=== PATIENT | male | born 1945 | race Caucasian/White ===

== ENCOUNTER 2020-05-28 01:36 | Inpatient (IN) | payer MEDICARE, OTHER ==
[2020-05-28] MEDS ORDERED: Enoxaparin Sodium 100 MG/ML SYRINGE ONE (02:27)
[2020-05-28] MEDS ORDERED: Senokot S 8.6-50 MG TAB PO PRN (03:14)
[2020-05-28] MEDS ORDERED: Acetaminophen 325 MG TAB PO PRN (03:14)
[2020-05-28 03:25] LABS: Troponin I 0.155 ng/mL (< 0.028)
--- NOTE | 2020-05-28 03:58 | PDOC.HHP ---
Hospitalist HPI - History of Present Illness Neck pain; weakness History of Present Illness: 74M presents to the ED in [place] as a transfer from the [place] ED where he was evaluated for 2 episodes of neck pain and weakness after having a BM. He denies having chest pain. He reports feeling very tried, sweaty and had a severe pain in his posterior neck. This happened 2 days in a row while having a BM both times. He was initially worked up for "stroke like" symptoms but had a negative NIH and work-up. He did have a high indeterminate troponin and was sent here to [place] for a cardiac workup. 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 He is also hard of hearing. He denies having any cardiac history, reports 2 stress tests, one that showed some posterior scaring, and subsequent wall motion was normal. He has not seen a vice president of news in years. ED Course: Troponin was 0.197 Hospitalist ROS - Review of Systems Constitutional: denies: fever, chills, sweats, weakness, malaise, other Eyes: denies: pain, vision change, conjunctivae inflammation, eyelid inflammation, redness, other ENT: denies: ear pain, ear discharge, nose pain, nose discharge, nose congestion, mouth pain, mouth swelling, throat pain, throat swelling, other Respiratory: denies: cough, dry, shortness of breath, hemoptysis, SOB with excertion, pleuritic pain, sputum, wheezing, other Cardiovascular: reports: light headedness Gastrointestinal: denies: nausea, vomiting, abdominal pain, diarrhea, constipation, melena, hematochezia, other Genitourinary: denies: dysuria, frequency, incontinence, hematuria, retention, other Musculoskeletal: reports: neck pain Skin: denies: rash, lesions, bob, bruising, other Neurological: reports: weakness - Medication Medications: metoprolol tartrate oral MonMay 28, 2020 02:36 tablet : Strength - 50 mg : ORAL Patient Dose: 0.5 tab(s) Oral once a day. atorvastatin MonMay 28, 2020 02:36 tablet : Strength - 80 mg : ORAL Patient Dose: 1 tab(s) Oral once a day (at bedtime). losartan MonMay 28, 2020 02:37 tablet : Strength - 100 mg : ORAL Patient Dose: 0.5 tab(s) Oral once a day. tamsulosin MonMay 28, 2020 02:37 capsule : Strength - 0.4 mg : ORAL Patient Dose: 1 cap(s) Oral once a day. Lasix oral MonMay 28, 2020 02:38 tablet : Strength - 80 mg : ORAL Patient Dose: 1 tab(s) Oral once a day. aspirin oral MonMay 28, 2020 02:38 tablet : Strength - 81 mg : ORAL Patient Dose: 1 tab(s) Oral once a day. Hospitalist History - Past Medical History Cardiac: reports: HTN Pulmonary: reports: hypertension [employer]: reports: CVA - Past Surgical History Other Surgical History: bilteral shoulder surgery, hernia repair - Exam Eye: PERRL, anicteric sclera ENT: normocephalic atraumatic Neck: supple, no JVD Heart: RRR, normal peripheral pulses Respiratory: CTAB, no wheezes Gastrointestinal: soft, non-tender, normal bowel sounds Extremities: no edema Skin: normal turgor Neurological: cranial nerve grossly intact Musculoskeletal: normal tone, normal strength Musculoskeletal - other findings: left side with residual weakness from previous CVA Psychiatric: normal affect, A&O x 3 Hospitalist Results - Labs Result Diagrams: 05/28/20 02:55 Hospitalist H&P A/P - Problem (1) Weakness Code(s): R53.1 - WEAKNESS Status: Acute (2) Hypertension Code(s): I10 - ESSENTIAL (PRIMARY) HYPERTENSION Status: Acute (3) History of CVA with residual deficit Code(s): I69.30 - UNSPECIFIED SEQUELAE OF CEREBRAL INFARCTION Status: Acute (4) Elevated troponin Code(s): R77.8 - OTHER SPECIFIED ABNORMALITIES OF PLASMA PROTEINS Status: Acute (5) Hyperlipemia Code(s): E78.5 - HYPERLIPIDEMIA, UNSPECIFIED Status: Acute (6) Near syncope Status: Acute (7) Vasovagal near syncope Code(s): R55 - SYNCOPE AND COLLAPSE Status: Acute - Plan Plan: Near syncope Serial troponins fasting lipids TSH Echo PT/OT consult HTN- restart medications HLD- restart medications DVT and PUD prevention Case discussed with Dr. Garcia
[2020-05-28 04:08] LABS: #Eosinphils 0.1 thou/uL (0.0-0.7); #Lymphocytes 1.3 thou/uL (1.20-3.40); #Monocytes 0.6 thou/uL (0.11-0.59); #Neutrophils 4.4 thou/uL (1.40-6.50); %Basophils 0.1 % (0.0-1.0); %Eosinophils 1.1 % (0.0-10.0); %Lymphocytes 19.7 % (21.0-51.0); %Monocytes 9.7 % (0.0-10.0); %Neutrophils 69.4 % (42.0-75.0); Hemoglobin 15.1 g/dL (14.0-18.0); Mean Corpuscular HGB CONC 34.2 g/dL (32.0-36.0); Mean Corpuscular Hemoglobin 32.9 pg (27.0-31.0); Mean Corpuscular Volume 96.3 fL (78.0-98.0); Mean Platelet Volume 7.3 fL (7.4-10.4); Platelet Count 171 thou/uL (130-400); RBC Distribution Width 12.5 % (11.5-14.5); Red Blood Cell (RBC) Count 4.59 mill/uL (4.70-6.10); White Blood Cell (WBC) Count 6.4 thou/uL (4.8-10.8)
[2020-05-28 04:20] LABS: ALT (SGPT) 23 U/L (8-55); AST (SGOT) 21 U/L (5-34); Albumin 3.8 g/dL (3.4-4.8); Alkaline Phosphatase 77 U/L (40-110); Anion Gap 16 mmol/L (10-20); BUN (Urea Nitrogen) 31 mg/dL (8.4-25.7); Bilirubin, Total 0.8 mg/dL (0.2-1.2); Calc. Creatinine Clearance 0 mL/min (70-130); Calcium 9.7 mg/dL (7.8-10.44); Carbon Dioxide 22 mmol/L (23-31); Cardiac Risk 2.7 (Less than 4.5); Chloride 105 mmol/L (98-107); Cholesterol 93 mg/dl (< 200 Desired); Estimated GFR-MDRD 55; Globulin 2.2 g/dL (2.4-3.5); Glucose 126 mg/dL (83-110); HDL Cholesterol 34 mg/dL (>60 Neg Risk); LDL Cholesterol, Calculated 44 mg/dL; Potassium 4.8 mmol/L (3.5-5.1); Sodium 138 mmol/L (136-145); Triglycerides 73 mg/dL (Less than 150)
[2020-05-28 04:29] VITALS: BMI 31.3
[2020-05-28 06:39] LABS: Troponin I 0.145 ng/mL (< 0.028)
[2020-05-28] MEDS ORDERED: Losartan 25 MG TAB PO SCH (09:00)
[2020-05-28] MEDS ORDERED: Tamsulosin HCl 0.4 MG CAP PO SCH (09:00)
[2020-05-28] MEDS ORDERED: Metoprolol Tartrate 25 MG TAB PO SCH (09:00)
[2020-05-28] MEDS ORDERED: Aspirin 81 mg Enteric Coated Tablet PO SCH (09:00)
[2020-05-28] MEDS ORDERED: Famotidine 20 MG TAB PO SCH (09:00)
[2020-05-28] MEDS ORDERED: Enoxaparin Sodium 40 MG/0.4 ML SYRINGE SC SCH (09:00)
--- NOTE | 2020-05-28 13:42 | PDOC.HOSPP ---
- Subjective Encounter Date: 05/28/20 Encounter Time: 11:30 Subjective: still has some post neck pain but better no chest pain or palp - Objective Vital Signs & Weight: Vital Signs (12 hours) Temp Pulse Resp BP BP BP Pulse Ox 05/28/20 11:43 98.5 F 76 16 123/79 95 05/28/20 11:12 132/80 139/78 05/28/20 09:45 95 05/28/20 08:00 97.4 F L 70 16 158/89 H 95 05/28/20 03:41 98.0 F 79 24 H 145/85 H 96 Weight Weight 230 lb 11.2 oz I&O: 05/27/20 05/28/20 05/29/20 06:59 06:59 06:59 Intake Total 0 Output Total 200 Balance -200 Result Diagrams: 05/28/20 02:55 05/28/20 02:55 Hospitalist ROS - Medication Medications: Active Medications Generic Name Dose Route Start Last Admin Trade Name Freq PRN Reason Stop Dose Admin Aspirin 81 mg 05/28/20 09:00 05/28/20 09:44 Aspirin 81 Mg Enteric Coated Tablet PO 81 mg DAILY CINDY Administration Enoxaparin Sodium 40 mg 05/28/20 09:00 05/28/20 09:45 Enoxaparin Sodium 40 Mg/0.4 Ml Syringe SC 40 mg 09 CINDY Administration Famotidine 20 mg 05/28/20 09:00 05/28/20 09:45 Famotidine 20 Mg Tab PO 20 mg BID CINDY Administration Losartan Potassium 50 mg 05/28/20 09:00 05/28/20 09:45 Losartan 25 Mg Tab PO 50 mg DAILY CINDY Administration Metoprolol Tartrate 12.5 mg 05/28/20 09:00 05/28/20 09:41 Metoprolol Tartrate 25 Mg Tab PO Not Given DAILY CINDY Tamsulosin HCl 0.4 mg 05/28/20 09:00 05/28/20 09:44 Tamsulosin Hcl 0.4 Mg Cap PO 0.4 mg DAILY CINDY Administration - Exam General Appearance: awake alert Eye: PERRL, anicteric sclera ENT: no oropharyngeal lesions, moist mucosa Neck: supple, no JVD Heart: RRR, no murmur Respiratory: no wheezes, no rales Gastrointestinal: soft, non-tender, non-distended, normal bowel sounds Extremities: no cyanosis, no edema Neurological: cranial nerve grossly intact, no focal deficits Psychiatric: A&O x 3 Hosp A/P (1) Neck pain Code(s): M54.2 - CERVICALGIA Status: Acute (2) Dyslipidemia Code(s): E78.5 - HYPERLIPIDEMIA, UNSPECIFIED Status: Chronic (3) BPH (benign prostatic hyperplasia) Code(s): N40.0 - BENIGN PROSTATIC HYPERPLASIA WITHOUT LOWER URINRY TRACT SYMP Status: Chronic Qualifiers: Lower urinary tract symptom presence: symptoms absent Qualified Code(s): N40.0 - Benign prostatic hyperplasia without lower urinary tract symptoms (4) History of CVA with residual deficit Code(s): I69.30 - UNSPECIFIED SEQUELAE OF CEREBRAL INFARCTION Status: Chronic (5) Hypertension Code(s): I10 - ESSENTIAL (PRIMARY) HYPERTENSION Status: Chronic Qualifiers: Hypertension type: essential hypertension Qualified Code(s): I10 - Essential (primary) hypertension - Plan is going for stress test, d/w may dc home if stress test is -ve continue cozaar, asp, lipitor and flomax, gentle iv fluids x 1 ltr hemostable
[2020-05-28] MEDS ORDERED: Dextrose 5% in Water 1,000 ML IV SCH (13:45)
[2020-05-28 16:52] VITALS: BP 133/85; TEMP 98.6
--- NOTE | 2020-05-28 16:58 | NM ---
MYOCARDIAL PERFUSION SCAN: Date: 05/28/2020 PROVIDED CLINICAL HISTORY: Chest pain. RADIOPHARMACEUTICAL: 27 mCi technetium-99m labeled sestamibi IV at stress. 9.4 mCi technetium-99m labeled sestamibi IV at rest. FINDINGS: There is a moderate area of moderately reduced radiotracer activity involving the basal to apical inf erior wall at stress and rest on the nonattenuated corrected images. This demonstrates normal activit y on the attenuated corrected stress images. There is no evidence for a true fixed defect. There is n o evidence for reversibility to suggest ischemia. Gated data demonstrate hypokinesis involving the in ferior wall with calculated LVEF of 46%. TID is 0.96. IMPRESSION: 1. No scintigraphic evidence for ischemia. 2. Fixed defect at the inferior wall is probably mostly diaphragmatic attenuation though there is ev idence for inferior wall hypokinesis. LVEF is 46%. POS: RAPHAEL
--- NOTE | 2020-05-28 17:51 | CON ---
DATE OF CONSULTATION: HISTORY: Fidel Patel is a 74-year-old white male who had a stroke in 2012 that manifested itself with left-sided weakness. He apparently had significant improvement from that. He now presents in transfer from [facility] where he presented with neck pain as well as episodes of weakness, dizziness for 20 minutes after having a bowel movement. He denied any chest pain. He states he had somewhat similar symptoms prior to his stroke in 2012. He denies any shortness of breath. PAST MEDICAL HISTORY: Stroke in 2012, hypertension, and hypercholesterolemia. OPERATIONS: Bilateral shoulder surgery, hernia repair. MEDICATIONS: 1. Aspirin 81 daily. 2. Atorvastatin 80 at bedtime. 3. Furosemide 80 daily. 4. Losartan 50 mg daily. 5. Metoprolol 12.5 mg daily. 6. Flomax 0.4 daily. ALLERGIES: NONE. PHYSICAL EXAMINATION: VITAL SIGNS: Blood pressure 133/85, pulse 66. HEENT: PERRL. NECK: Supple. CHEST: Clear. CARDIAC: S1 and S2 normal without any S3, S4, or murmurs. Carotid upstroke is normal without bruits. ABDOMEN: Normal bowel sounds without tenderness or organomegaly. EXTREMITIES: Revealed no clubbing, cyanosis, or edema. NEUROLOGIC: Grossly intact. LABORATORY DATA: EKG reveals sinus rhythm with first-degree AV block, occasional PVCs, left axis deviation. Echocardiogram revealed ejection fraction of 50% to 55% with evidence of diastolic dysfunction with mild left atrial enlargement, mild tricuspid regurgitation, mild aortic regurgitation, and mild mitral regurgitation. Lexiscan and Cardiolite testing revealed no evidence of ischemia. There was evidence for diaphragmatic attenuation. CBC is unremarkable. Troponin I 0.155. Sodium 138, potassium 4.8, chloride 105, carbon dioxide 22, BUN 31, and creatinine 1.29. IMPRESSION: 1. 20-minute episode of dizziness after having a bowel movement. On the monitor, he has not had any significant arrhythmias. 2. Normal Cardiolite. 3. Hypertension. 4. Hypercholesterolemia. 5. History of stroke in 2012. RECOMMENDATIONS: Mr. Patel has normal Cardiolite scan and I do not feel any further cardiac evaluation was warranted. His symptoms may be related to hypovolemia with elevated BUN and consideration may be given to reduction of his furosemide dose. Also symptoms could be related to a transient ischemic attack. At any rate from a Cardiac standpoint, no further evaluation was needed. Job ID: [id number] DIANDRA
[2020-05-28] MEDS ORDERED: Atorvastatin Calcium 40 MG TAB PO SCH (21:00)
--- NOTE | 2020-05-30 16:04 | DIS ---
DATE OF ADMISSION: 05/28/2020 DATE OF DISCHARGE: 05/28/2020 DISCHARGE DISPOSITION: To home. PRIMARY DISCHARGE DIAGNOSIS: Atypical chest pain, noncardiac. SECONDARY DISCHARGE DIAGNOSES: 1. History of cerebrovascular accident with residual deficits. 2. Hypertension. 3. Dyslipidemia. 4. Benign prostatic hypertrophy. PROCEDURES DONE DURING HOSPITALIZATION: The patient has had nuclear stress test done, which showed no evidence of reversible ischemia. There was a fixed defect at the inferior wall, most likely representing diaphragmatic attenuation. Ejection fraction is 46%. Echo with 2D Doppler done showed ejection fraction of 50% to 55%. H and H of 15 and 44, platelet count 171, BUN 31, creatinine 1.2, serum glucose 126. Liver enzymes within normal limits. LDL 44, triglycerides 73, total cholesterol 93, and HDL 34. DISCHARGE MEDICATIONS: 1. Atorvastatin 80 mg p.o. at bedtime. 2. Aspirin 81 mg p.o. daily. 3. Flomax 0.4 mg p.o. daily. 4. Lopressor 12.5 mg p.o. daily. 5. Losartan 50 mg p.o. daily. ALLERGIES: NO KNOWN DRUG ALLERGIES. DISCHARGE PLAN: The patient to follow up with his primary care physician, Dr. Tiny Loredo in 1 week. BRIEF COURSE DURING HOSPITALIZATION: The patient initially got admitted on the with complaints of neck pain. He apparently had similar episodes of pain in the past, which was resembling chest pain. In view of this history and prior history of multiple risk factors, the patient was admitted to telemetry. He has had 3 sets of troponin done. They were indeterminate. He has had nuclear stress test done, which did not reveal any reversible ischemia. He was evaluated by Dr. Saeed of Cardiology as well. He is cleared for discharge today. The patient is feeling comfortable. His echo shows normal ejection fraction and no gross valvular abnormality. Prior to discharge, he is eating and ambulating. Please see a [id number] documentation for the day of discharge on [employer]. Job ID: [id number]
== END 2020-05-28 19:02 | disposition home or self-care (01) | DRG 313 ==
LOC: ERS 01:36 → 2NO 02:24
PROVIDERS: ADMIT Internal Medicine; ATTEND Internal Medicine
DX: R07.89 Other chest pain (principal); I69.354 Hemiplegia and hemiparesis following cerebral infarction affecting left non-dominant side; I10 Essential (primary) hypertension; R55 Syncope and collapse; E78.5 Hyperlipidemia, unspecified; R77.8 Other specified abnormalities of plasma proteins; N40.0 Benign prostatic hyperplasia without lower urinary tract symptoms; Z98.890 Other specified postprocedural states; Z79.82 Long term (current) use of aspirin
CPT/HCPCS: 36415; 78452; 80053; 80061; 84443; 84484; 85025; 93017; 93306; 96372; 99285; A9500; J1650

== ENCOUNTER 2022-03-12 13:32 | Inpatient (IN) | payer MEDICARE, OTHER ==
[2022-03-12 15:11] LABS: #Lymphocytes 0.8 thou/uL (1.20-3.40); #Monocytes 0.9 thou/uL (0.11-0.59); #Neutrophils 7.7 thou/uL (1.40-6.50); %Eosinophils 0.3 % (0.0-10.0); %Lymphocytes 8.1 % (21.0-51.0); %Monocytes 9.4 % (0.0-10.0); %Neutrophils 82.2 % (42.0-75.0); Mean Corpuscular HGB CONC 35.1 g/dL (32.0-36.0); Mean Corpuscular Hemoglobin 33.4 pg (27.0-31.0); Mean Corpuscular Volume 95.3 fL (78.0-98.0); Mean Platelet Volume 7.4 fL (7.4-10.4); Platelet Count 129 thou/uL (130-400); RBC Distribution Width 12.1 % (11.5-14.5); Red Blood Cell (RBC) Count 4.48 mill/uL (4.70-6.10); White Blood Cell (WBC) Count 9.3 thou/uL (4.8-10.8)
[2022-03-12 15:32] LABS: ALT (SGPT) 21 U/L (8-55); AST (SGOT) 21 U/L (5-34); Albumin 4.2 g/dL (3.4-4.8); Alkaline Phosphatase 75 U/L (40-110); Anion Gap 16 mmol/L (10-20); BUN (Urea Nitrogen) 13 mg/dL (8.4-25.7); Bilirubin, Total 1.8 mg/dL (0.2-1.2); Calc. Creatinine Clearance 0 mL/min (70-130); Calcium 9.1 mg/dL (7.8-10.44); Carbon Dioxide 19 mmol/L (23-31); Chloride 98 mmol/L (98-107); Estimated GFR 90; Globulin 3.2 g/dL (2.4-3.5); Glucose 109 mg/dL (83-110); Potassium 3.8 mmol/L (3.5-5.1); Protein, Total 7.4 g/dL (5.8-8.1); Sodium 129 mmol/L (136-145)
[2022-03-12 17:18] LABS: Bacteria/HPF 1+ HPF (None Seen); Bilirubin Negative (Negative); Blood, Urine 3+ (Negative); Clarity Turbid (Clear); Glucose, Urine (Dipstick) Normal (Negative); Ketone, Urine Trace mg/dL (Negative); Leukocyte 500 Leu/uL (Negative); Nitrite Negative (Negative); Protein, Urine (Dipstick) 70 mg/dL (Neg-Trace); RBC/HPF Greater than 50 HPF (0-3); Specific Gravity, Urine 1.025 (1.002-1.036); Squamous Epithelial None Seen HPF (0-3); Urobilinogen Normal mg/dL (Less than 2); WBC/HPF Greater than 50 HPF (0-3); pH, Urine 5.5 (5.0-9.0)
[2022-03-12] MEDS ORDERED: Senokot S 8.6-50 MG TAB PO PRN (18:01)
[2022-03-12] MEDS ORDERED: Acetaminophen 325 MG TAB PO PRN (18:01)
[2022-03-12] MEDS ORDERED: Acetaminophen 650 MG Suppository PR PRN (18:01)
[2022-03-12] MEDS ORDERED: Ondansetron PF 4 MG/2 ML Vial IVP PRN (18:01)
[2022-03-12] MEDS ORDERED: Bisacodyl 5 MG TAB PO PRN (18:01)
[2022-03-12] MEDS ORDERED: cefTRIAXone\\ROCEPHIN 1 GM VIAL ONE (18:09)
[2022-03-12] MEDS ORDERED: Acetaminophen 500 MG TAB ONE (18:09)
[2022-03-12 19:12] LABS: SARS-CoV-2 NAA Rapid Test Not Detected (NotDetected)
[2022-03-12 21:21] VITALS: BMI 30.7
[2022-03-12] MEDS: Famotidine 20 MG TAB PO SCH (21:31)
[2022-03-13 06:35] LABS: #Eosinphils 0.1 thou/uL (0.0-0.7); #Monocytes 0.9 thou/uL (0.11-0.59); #Neutrophils 6.4 thou/uL (1.40-6.50); %Basophils 0.1 % (0.0-1.0); %Lymphocytes 11.6 % (21.0-51.0); %Monocytes 10.4 % (0.0-10.0); %Neutrophils 76.8 % (42.0-75.0); Hemoglobin 12.7 g/dL (14.0-18.0); Mean Corpuscular HGB CONC 34.7 g/dL (32.0-36.0); Mean Corpuscular Volume 95.1 fL (78.0-98.0); Mean Platelet Volume 7.5 fL (7.4-10.4); Platelet Count 115 thou/uL (130-400); Red Blood Cell (RBC) Count 3.85 mill/uL (4.70-6.10); White Blood Cell (WBC) Count 8.3 thou/uL (4.8-10.8)
[2022-03-13 06:57] LABS: Anion Gap 11 mmol/L (10-20); BUN (Urea Nitrogen) 11 mg/dL (8.4-25.7); Calc. Creatinine Clearance 145 mL/min (70-130); Calcium 7.9 mg/dL (7.8-10.44); Carbon Dioxide 19 mmol/L (23-31); Chloride 102 mmol/L (98-107); Estimated GFR 98; Glucose 92 mg/dL (83-110); Sodium 129 mmol/L (136-145)
[2022-03-13 07:05] LABS: Potassium 2.9 mmol/L (3.5-5.1)
[2022-03-13] MEDS: Potassium Chloride 20 MEQ TAB PO SCH ×2 (09:29→11:59)
[2022-03-13] MEDS: Famotidine 20 MG TAB PO SCH ×2 (09:29→21:19)
[2022-03-13] MEDS: Enoxaparin Sodium 40 MG/0.4 ML SYRINGE SC SCH (09:30)
[2022-03-13] MEDS ORDERED: Potassium Chloride 20 MEQ TAB PO SCH (17:00)
[2022-03-13] MEDS ORDERED: Magnesium 2 GM/50 ML(in water) 2 GM in Premix Bag 1 BAG IVPB SCH (17:00)
[2022-03-13] MEDS: cefTRIAXone\\ROCEPHIN 1 GM in Sodium Chloride 0.9% 100 ML IVPB SCH (18:31)
[2022-03-13] MEDS: Atorvastatin Calcium 40 MG TAB PO SCH (21:19)
[2022-03-14 06:03] LABS: #Eosinphils 0.4 thou/uL (0.0-0.7); #Lymphocytes 1.1 thou/uL (1.20-3.40); #Monocytes 0.9 thou/uL (0.11-0.59); #Neutrophils 3.9 thou/uL (1.40-6.50); %Basophils 0.3 % (0.0-1.0); %Lymphocytes 17.2 % (21.0-51.0); %Monocytes 13.9 % (0.0-10.0); %Neutrophils 62.6 % (42.0-75.0); Hemoglobin 12.8 g/dL (14.0-18.0); Mean Corpuscular HGB CONC 33.6 g/dL (32.0-36.0); Mean Corpuscular Hemoglobin 32.1 pg (27.0-31.0); Mean Corpuscular Volume 95.6 fL (78.0-98.0); Mean Platelet Volume 7.4 fL (7.4-10.4); Platelet Count 127 thou/uL (130-400); RBC Distribution Width 12.1 % (11.5-14.5); Red Blood Cell (RBC) Count 3.98 mill/uL (4.70-6.10); White Blood Cell (WBC) Count 6.2 thou/uL (4.8-10.8)
[2022-03-14] MEDS: Benzonatate 100 MG CAP PO PRN ×2 (06:20→22:20)
[2022-03-14 06:37] LABS: Anion Gap 13 mmol/L (10-20); BUN (Urea Nitrogen) 11 mg/dL (8.4-25.7); Calc. Creatinine Clearance 140 mL/min (70-130); Calcium 8.4 mg/dL (7.8-10.44); Carbon Dioxide 18 mmol/L (23-31); Chloride 103 mmol/L (98-107); Estimated GFR 97; Glucose 92 mg/dL (83-110); Magnesium 1.9 mg/dL (1.6-2.6); Potassium 3.5 mmol/L (3.5-5.1); Sodium 130 mmol/L (136-145)
[2022-03-14] MEDS: Famotidine 20 MG TAB PO SCH ×2 (08:41→22:20)
[2022-03-14] MEDS: Losartan 25 MG TAB PO SCH (08:41)
[2022-03-14] MEDS: Aspirin 81 mg Enteric Coated Tablet PO SCH (08:42)
[2022-03-14] MEDS: Tamsulosin HCl 0.4 MG CAP PO SCH (08:42)
[2022-03-14] MEDS: Enoxaparin Sodium 40 MG/0.4 ML SYRINGE SC SCH (08:42)
[2022-03-14] MEDS ORDERED: Iopamidol 370 76% 100 ML VIAL ONE (10:11)
[2022-03-14] MEDS: cefTRIAXone\\ROCEPHIN 1 GM in Sodium Chloride 0.9% 100 ML IVPB SCH (17:49)
[2022-03-14] MEDS: Atorvastatin Calcium 40 MG TAB PO SCH (22:20)
[2022-03-15 07:32] LABS: #Eosinphils 0.5 thou/uL (0.0-0.7); #Lymphocytes 0.9 thou/uL (1.20-3.40); #Monocytes 0.6 thou/uL (0.11-0.59); #Neutrophils 2.8 thou/uL (1.40-6.50); %Basophils 0.7 % (0.0-1.0); %Eosinophils 9.7 % (0.0-10.0); %Monocytes 12.9 % (0.0-10.0); %Neutrophils 57.8 % (42.0-75.0); Hemoglobin 13.8 g/dL (14.0-18.0); Mean Corpuscular HGB CONC 34.4 g/dL (32.0-36.0); Mean Corpuscular Hemoglobin 32.9 pg (27.0-31.0); Mean Corpuscular Volume 95.8 fL (78.0-98.0); Mean Platelet Volume 7.4 fL (7.4-10.4); Platelet Count 158 thou/uL (130-400); RBC Distribution Width 12.2 % (11.5-14.5); White Blood Cell (WBC) Count 4.9 thou/uL (4.8-10.8)
[2022-03-15 07:42] LABS: Anion Gap 13 mmol/L (10-20); BUN (Urea Nitrogen) 10 mg/dL (8.4-25.7); Calc. Creatinine Clearance 145 mL/min (70-130); Calcium 8.5 mg/dL (7.8-10.44); Carbon Dioxide 19 mmol/L (23-31); Chloride 105 mmol/L (98-107); Estimated GFR 98; Glucose 100 mg/dL (83-110); Potassium 3.5 mmol/L (3.5-5.1); Sodium 133 mmol/L (136-145)
[2022-03-15] MEDS: Aspirin 81 mg Enteric Coated Tablet PO SCH (08:32)
[2022-03-15] MEDS: Tamsulosin HCl 0.4 MG CAP PO SCH (08:32)
[2022-03-15] MEDS: Losartan 25 MG TAB PO SCH (08:32)
[2022-03-15] MEDS: Famotidine 20 MG TAB PO SCH ×2 (08:32→21:26)
[2022-03-15] MEDS: Benzonatate 100 MG CAP PO PRN ×2 (08:32→21:26)
[2022-03-15] MEDS: Enoxaparin Sodium 40 MG/0.4 ML SYRINGE SC SCH (08:33)
[2022-03-15] MEDS ORDERED: fentaNYL Citrate/PF 100 MCG/2 ML SYRINGE ONE (15:44)
[2022-03-15] MEDS ORDERED: Lidocaine 1% MPF 2 ML VIAL ONE (16:17)
[2022-03-15] MEDS ORDERED: Phenylephrine 10 MG/ML VIAL ONE (16:17)
[2022-03-15] MEDS ORDERED: Ondansetron PF 4 MG/2 ML Vial ONE (16:17)
[2022-03-15] MEDS ORDERED: Dexamethasone 20 MG/5 ML VIAL ONE (16:17)
[2022-03-15] MEDS ORDERED: Iopamidol 30 ML ONE (16:40)
[2022-03-15] MEDS ORDERED: cefTRIAXone\\ROCEPHIN 1 GM VIAL ONE (16:40)
[2022-03-15] MEDS ORDERED: B & O ONE (16:51)
[2022-03-15] MEDS ORDERED: Promethazine HCl 25 MG/ML VIAL IM PRN (17:06)
[2022-03-15] MEDS ORDERED: Ondansetron HCl/PF 4 MG/2 ML Vial IVP PRN (17:06)
[2022-03-15] MEDS ORDERED: Promethazine HCl 25 MG/ML VIAL IVPB PRN (17:06)
[2022-03-15] MEDS: cefTRIAXone\\ROCEPHIN 1 GM in Sodium Chloride 0.9% 100 ML IVPB SCH (18:02)
[2022-03-15] MEDS: Atorvastatin Calcium 40 MG TAB PO SCH (21:26)
[2022-03-16 06:45] LABS: #Lymphocytes 0.8 thou/uL (1.20-3.40); #Monocytes 0.4 thou/uL (0.11-0.59); #Neutrophils 5.2 thou/uL (1.40-6.50); %Basophils 0.1 % (0.0-1.0); %Eosinophils 0.1 % (0.0-10.0); %Lymphocytes 12.3 % (21.0-51.0); %Monocytes 6.9 % (0.0-10.0); %Neutrophils 80.6 % (42.0-75.0); Hemoglobin 14.6 g/dL (14.0-18.0); Mean Corpuscular HGB CONC 34.4 g/dL (32.0-36.0); Mean Corpuscular Volume 95.8 fL (78.0-98.0); Mean Platelet Volume 6.9 fL (7.4-10.4); Platelet Count 196 thou/uL (130-400); Red Blood Cell (RBC) Count 4.43 mill/uL (4.70-6.10); White Blood Cell (WBC) Count 6.4 thou/uL (4.8-10.8)
[2022-03-16 07:09] LABS: Anion Gap 12 mmol/L (10-20); BUN (Urea Nitrogen) 12 mg/dL (8.4-25.7); Calc. Creatinine Clearance 121 mL/min (70-130); Carbon Dioxide 23 mmol/L (23-31); Chloride 101 mmol/L (98-107); Estimated GFR 93; Glucose 138 mg/dL (83-110); Potassium 4.2 mmol/L (3.5-5.1); Sodium 132 mmol/L (136-145)
[2022-03-16] MEDS: Losartan 25 MG TAB PO SCH (08:14)
[2022-03-16] MEDS: Famotidine 20 MG TAB PO SCH (08:14)
[2022-03-16] MEDS: Benzonatate 100 MG CAP PO PRN (08:14)
[2022-03-16] MEDS: Aspirin 81 mg Enteric Coated Tablet PO SCH (08:16)
[2022-03-16] MEDS: Tamsulosin HCl 0.4 MG CAP PO SCH (08:16)
[2022-03-16] MEDS: Enoxaparin Sodium 40 MG/0.4 ML SYRINGE SC SCH (08:16)
[2022-03-16] MEDS ORDERED: Cefdinir 300 MG CAP PO SCH (10:15)
[2022-03-16] MEDS ORDERED: Vancomycin 1 GM in Premix Bag 1 BAG IVPB SCH (14:33)
[2022-03-16] MEDS: VANCOMYCIN 1.25 GM/250 ML BAG 1.25 GM in Premix Bag 1 BAG IVPB SCH (16:18)
[2022-03-16] MEDS: Atorvastatin Calcium 40 MG TAB PO SCH (21:30)
[2022-03-16] MEDS: Cefdinir 300 MG CAP PO SCH (21:30)
[2022-03-17] MEDS: VANCOMYCIN 1.25 GM/250 ML BAG 1.25 GM in Premix Bag 1 BAG IVPB SCH ×2 (04:25→15:51)
[2022-03-17 06:58] LABS: #Eosinphils 0.3 thou/uL (0.0-0.7); #Lymphocytes 1.5 thou/uL (1.20-3.40); #Monocytes 0.6 thou/uL (0.11-0.59); #Neutrophils 4.9 thou/uL (1.40-6.50); %Basophils 0.6 % (0.0-1.0); %Lymphocytes 20.2 % (21.0-51.0); %Neutrophils 67.2 % (42.0-75.0); Hemoglobin 14.3 g/dL (14.0-18.0); Mean Corpuscular HGB CONC 33.3 g/dL (32.0-36.0); Mean Corpuscular Volume 96.1 fL (78.0-98.0); Mean Platelet Volume 6.6 fL (7.4-10.4); Platelet Count 230 thou/uL (130-400); RBC Distribution Width 12.3 % (11.5-14.5); Red Blood Cell (RBC) Count 4.47 mill/uL (4.70-6.10); White Blood Cell (WBC) Count 7.2 thou/uL (4.8-10.8)
[2022-03-17 07:23] LABS: Anion Gap 13 mmol/L (10-20); BUN (Urea Nitrogen) 12 mg/dL (8.4-25.7); Calc. Creatinine Clearance 124 mL/min (70-130); Calcium 9.1 mg/dL (7.8-10.44); Carbon Dioxide 24 mmol/L (23-31); Chloride 103 mmol/L (98-107); Estimated GFR 94; Glucose 88 mg/dL (83-110); Potassium 4.2 mmol/L (3.5-5.1); Sodium 136 mmol/L (136-145)
[2022-03-17] MEDS: Aspirin 81 mg Enteric Coated Tablet PO SCH (09:12)
[2022-03-17] MEDS: Enoxaparin Sodium 40 MG/0.4 ML SYRINGE SC SCH (09:12)
[2022-03-17] MEDS: Losartan 25 MG TAB PO SCH (09:12)
[2022-03-17] MEDS: Tamsulosin HCl 0.4 MG CAP PO SCH (09:12)
[2022-03-17] MEDS: Cefdinir 300 MG CAP PO SCH ×2 (09:12→20:35)
[2022-03-17] MEDS: Atorvastatin Calcium 40 MG TAB PO SCH (20:35)
[2022-03-18 03:24] LABS: #Eosinphils 0.5 thou/uL (0.0-0.7); #Lymphocytes 1.4 thou/uL (1.20-3.40); #Monocytes 0.6 thou/uL (0.11-0.59); #Neutrophils 4.6 thou/uL (1.40-6.50); %Basophils 0.2 % (0.0-1.0); %Eosinophils 6.6 % (0.0-10.0); %Lymphocytes 20.3 % (21.0-51.0); %Monocytes 8.5 % (0.0-10.0); %Neutrophils 64.4 % (42.0-75.0); Hemoglobin 14.7 g/dL (14.0-18.0); Mean Corpuscular HGB CONC 34.1 g/dL (32.0-36.0); Mean Corpuscular Hemoglobin 32.9 pg (27.0-31.0); Mean Corpuscular Volume 96.6 fL (78.0-98.0); Mean Platelet Volume 6.5 fL (7.4-10.4); Platelet Count 254 thou/uL (130-400); RBC Distribution Width 12.4 % (11.5-14.5); Red Blood Cell (RBC) Count 4.47 mill/uL (4.70-6.10); White Blood Cell (WBC) Count 7.1 thou/uL (4.8-10.8)
[2022-03-18 03:43] LABS: Vancomycin, Trough 13.9 ug/mL
[2022-03-18 03:44] LABS: Anion Gap 9 mmol/L (10-20); BUN (Urea Nitrogen) 16 mg/dL (8.4-25.7); Calc. Creatinine Clearance 114 mL/min (70-130); Carbon Dioxide 27 mmol/L (23-31); Chloride 103 mmol/L (98-107); Estimated GFR 91; Glucose 96 mg/dL (83-110); Potassium 4.1 mmol/L (3.5-5.1); Sodium 135 mmol/L (136-145)
[2022-03-18] MEDS: VANCOMYCIN 1.25 GM/250 ML BAG 1.25 GM in Premix Bag 1 BAG IVPB SCH (04:09)
[2022-03-18] MEDS ORDERED: Amoxicillin/Potassium Clav 875 MG TAB PO SCH (09:00)
[2022-03-18] MEDS: Aspirin 81 mg Enteric Coated Tablet PO SCH (09:14)
[2022-03-18] MEDS: Enoxaparin Sodium 40 MG/0.4 ML SYRINGE SC SCH (09:14)
[2022-03-18] MEDS: Losartan 25 MG TAB PO SCH (09:14)
[2022-03-18] MEDS: Tamsulosin HCl 0.4 MG CAP PO SCH (09:14)
[2022-03-18 09:20] VITALS: BP 132/86; TEMP 97.6
== END 2022-03-18 17:27 | DRG 853 ==
LOC: ERS 13:32 → T4-B 17:48
PROVIDERS: ADMIT Family Medicine; ATTEND Internal Medicine
PROC: 3E03329 Introduction of Other Anti-infective into Peripheral Vein, Percutaneous Approach (ICD-10-PCS; 2022-03-12)
PROC: 0T778DZ Dilation of Left Ureter with Intraluminal Device, Via Natural or Artificial Opening Endoscopic (ICD-10-PCS; principal; 2022-03-15)
PROC: BT1F1ZZ Fluoroscopy of Left Kidney, Ureter and Bladder using Low Osmolar Contrast (ICD-10-PCS; 2022-03-15)
PROC: 0T948ZX Drainage of Left Kidney Pelvis, Via Natural or Artificial Opening Endoscopic, Diagnostic (ICD-10-PCS; 2022-03-15)
DX: A41.81 Sepsis due to Enterococcus (principal); G93.41 Metabolic encephalopathy; N13.6 Pyonephrosis; E87.1 Hypo-osmolality and hyponatremia; R65.20 Severe sepsis without septic shock; E78.5 Hyperlipidemia, unspecified; I10 Essential (primary) hypertension; I25.10 Atherosclerotic heart disease of native coronary artery without angina pectoris; E87.6 Hypokalemia; N28.1 Cyst of kidney, acquired; N20.0 Calculus of kidney; N41.9 Inflammatory disease of prostate, unspecified; N40.1 Benign prostatic hyperplasia with lower urinary tract symptoms; Z20.822 Contact with and (suspected) exposure to COVID-19; I25.2 Old myocardial infarction; Z90.49 Acquired absence of other specified parts of digestive tract; Z95.0 Presence of cardiac pacemaker; Z79.82 Long term (current) use of aspirin; Z86.73 Personal history of transient ischemic attack (TIA), and cerebral infarction without residual deficits; Z98.890 Other specified postprocedural states; Z79.899 Other long term (current) drug therapy
CPT/HCPCS: 36415; 70450; 71045; 74178; 74420; 76770; 80048; 80053; 80202; 81003; 83605; 83735; 83880; 84484; 85025; 87040; 87070; 87077; 87086; 87186; 87205; 93005; 96374; C2617; J0696; J1100; J1650; J2370; J2405; J3370; J3475; J3490; Q9967